=== PATIENT | male | born 1980 | race Caucasian/White ===

== ENCOUNTER 2017-03-06 03:17 | Emergency (ER) | payer BC ==
[2017-03-06 04:07] LABS: Urine Bilirubin Negative (NEGATIVE); Urine Blood 250 /ul (NEGATIVE); Urine Ketone Negative (NEGATIVE); Urine Nitrite Negative (NEGATIVE); Urine Protein 15 mg/dL (NEGATIVE); Urine Specific Gravity >=1.030 SP.GR. (1.005-1.030); Urine Urobilinogen Normal (NORMAL)
--- NOTE | 2017-03-06 04:20 | ERNOTE ---
Back Pain ER HPI Date of Service: 03/06/17 Time Seen by Provider: 03/06/17 04:06 Source: patient Exam Limitations: no limitations Immunizations: IMMUNIZATION HX Immunizations Up to Date Yes History of Influenza Vaccine No Hx Pneumococcal Vaccination No Allergies/Adverse Reactions: Allergies No Known Allergies Allergy (Verified 03/06/17 03:50) Home Medications: HOME MEDICATIONS Naproxen [Naprosyn] 500 mg PO BID PRN #30 tablet 03/06/17 [Last Taken Unknown] Ondansetron HCl [Zofran] 4 mg PO TID PRN #15 tablet 03/06/17 [Last Taken Unknown ] Tamsulosin HCl [Flomax] 0.4 mg PO DAILY@1800 PRN #15 cap 03/06/17 [Last Taken Unknown] Narrative: 36 year old that had a sudden onset of right flank pain that was severe and sharp. The pain has actually decreased and does not require any pain medications. There has been pain in the right flank intermittently for three days. No complaints of fever, chill, nausea, vomiting, dysuria, or urinary frequency. As a teenager he did have a kidney stone, but none since then. No medications were taken prior to coming to the ED. Date (Duration): 03/06/17 Timing: Reports: resolved prior to arrival Quality/Severity: Reports: severe Location of pain: Reports: lower back, other - questionable radiation to the right Lower quadrant Activities at Onset: Reports: none Possible Precipitating Factor: Reports: none Modifying Factors - (Improves): Reports: nothing Modifying Factors - (Worsens): Reports: nothing Associated Symptoms: Denies: fever/chills, nausea/vomiting Review of Systems - Review of Systems Constitutional: Present: no symptoms reported EYE: Present: no symptoms reported ENT: Present: no symptoms reported Respiratory: Present: no symptoms reported Cardiology: Present: no symptoms reported Gastrointestinal/Abdominal: Present: See HPI Genitourinary: Present: See HPI Musculoskeletal: Present: no symptoms reported Skin: Present: no symptoms reported Neurological: Present: no symptoms reported Endocrine: Present: no symptoms reported Hematologic/Lymphatic: Present: no symptoms reported Psych: Present: no symptoms reported - Patient's Past Medical History Patient History - Medical: No pertinent hx Patient History - Cardiac/Respiratory: No pertinent hx Patient History - Cancer: No Hx of Cancer Patient History - Surgical Procedures: Other Patient History - Other: None - Family History Father Family History - Medical: Kidney stone - Social History Living Situations: home Abuse History: No History of abuse Psych History: No pertinent hx Smoking Status: Current every day smoker Have you smoked in the past 12 months: Yes Do you dip or chew tobacco: No Alcohol Use: occasionally Drug Use: none - Immunizations Immunizations Up to Date: Yes Hx Pneumococcal Vaccination: No History of Influenza Vaccine: No Physical Exam - Physical Exam General Appearance: Present: no apparent distress Head Exam: Present: normal inspection Eye Exam: Normal inspection: bilateral Ears, Nose, Throat: Present: normal ENT inspection Neck: Present: normal inspection Respiratory: Present: no respiratory distress Cardiovascular/Chest: Present: regular rate, rhythm Gastrointestinal/Abdominal: Present: nondistended, soft, no organomegaly, other - Minimal tenderness on deep palpation at the bladder. Back Exam: Present: normal inspection, no CVA tenderness Extremity Exam: Present: normal inspection Neurological Exam: Present: alert, oriented, normal mood/affect Skin Exam: Present: normal color, warm/dry ED Progress - Results and Orders Patient's Lab Results:: I have reviewed the patient's lab results. - Vital Signs Patient's Vital Signs:: I have reviewed the patient's vital signs. Vital Signs: Vital Signs 03/06/17 03:51 Temperature 36.8 C Pulse Rate 77 Respiratory 12 Rate Blood Pressure 144/94 O2 Sat by Pulse 97 Oximetry - CT/Ultrasound CT/Ultrasound Narrative: CT demonstrated a 4 mm right proximal ureteral stone; right hydroureteronephrosis - Progress/Reassessment Chief Complaint: Back Pain Progress:: Unchanged Progress Note-Subjective: 03/06/17 05:51 Hemodynamically stable. Comfortable. Departure Clinical Impression: Renal stone - Departure Disposition: Home self-care Condition: Good Instructions: Renal Colic, [id number] Print Language: Persian Additional Instructions: Follow up with Urology next week. If the pain is not controlled by the medications return to the ED. Referrals: Nabil Quiñones MD [Associate] - Prescriptions: Naproxen [Naprosyn] 500 mg PO BID PRN #30 tablet PRN Reason: Pain Ondansetron HCl [Zofran] 4 mg PO TID PRN #15 tablet PRN Reason: Nausea Tamsulosin HCl [Flomax] 0.4 mg PO DAILY@1800 PRN #15 cap PRN Reason: Pain
[2017-03-06 04:21] LABS: Urine Appearance Slightly Cloudy; Urine Bacteria 1+; Urine Color Yellow; Urine Mucus Few - 1+; Urine WBC None Seen /hpf (0-5)
[2017-03-06 04:40] LABS: Hematocrit 40.8 % (42.0-52.0); Hemoglobin 14.3 gm/dL (13.5-18.0); Mean Cell Volume 93.4 fl (78-100); Mean Corpuscular Hemoglobin 32.7 pg (27-31); Mean Platelet Volume 9.1 fl (6.0-9.5); Neutrophil % 67.4 % (42-75.0); Platelet Count 269 K/mm3 (150-450); Red Blood Count 4.37 M/mm3 (4.7-6.0); Red Cell Distribution Width 11.9 % (11.5-14.0); White Blood Count 14.9 K/mm3 (4.0-10.5)
[2017-03-06 05:02] LABS: Anion Gap 13.7 mmol/L (6.8-13.8); Blood Urea Nitrogen 15 mg/dL (6-23); Calcium * 8.7 mg/dL (7.9-10.9); Carbon Dioxide 28.6 mmol/L (24-32.6); Chloride 104 mmol/L (97-106); Glucose * 110 mg/dL (70-110); Potassium 4.3 mmol/L (3.4-4.6); Sodium 142 mmol/L (132-142)
[2017-03-06 06:09] VITALS: BP 148/98
== END 2017-03-06 06:07 | disposition home or self-care (01) ==
LOC: ER 03:17
DX: N20.0 Calculus of kidney (principal); Z87.442 Personal history of urinary calculi; F17.200 Nicotine dependence, unspecified, uncomplicated

== ENCOUNTER 2017-03-12 11:06 | Day surgery (SDC) | payer BC ==
[~2017-03-12 11:06] MED LIST: ACETAMINOPHEN WITH CODEINE 1 EACH TABLET PO PRN; ONDANSETRON HCL/PF 2 MG/ML VIAL IV PRN; OXYBUTYNIN CHLORIDE 5 MG TABLET PO PRN; oxyCODONE HCL/ACETAMINOPHEN 1 TAB TABLET PO PRN
[2017-03-12] MEDS ORDERED: RINGER'S SOLUTION,LACTATED 1,000 ML IV PRN (11:29)
[2017-03-12] MEDS ORDERED: CIPROFLOXACIN IN 5 % DEXTROSE 400 MG/200 ML BAG IV PRN (11:30)
[2017-03-12] MEDS ORDERED: RINGER'S SOLUTION,LACTATED 1,000 ML IV ONE (15:00)
[2017-03-12 16:07] VITALS: BP 140/88
== END 2017-03-12 11:07 | disposition home or self-care (01) ==
LOC: AMB 11:06
PROVIDERS: ATTEND Urology
PROC: 0T768DZ Dilation of Right Ureter with Intraluminal Device, Via Natural or Artificial Opening Endoscopic (ICD-10-PCS; 2017-03-12)
PROC: 0TF38ZZ Fragmentation in Right Kidney Pelvis, Via Natural or Artificial Opening Endoscopic (ICD-10-PCS; principal; 2017-03-12 13:20)
DX: N20.0 Calculus of kidney (principal); N20.1 Calculus of ureter; E66.9 Obesity, unspecified; Z68.30 Body mass index [BMI] 30.0-30.9, adult

== ENCOUNTER 2018-11-10 20:38 | Inpatient (IN) ==
[2018-11-10] MEDS ORDERED: KETOROLAC TROMETHAMINE 30 MG/ML VIAL IV ONE (20:57)
[2018-11-10] MEDS ORDERED: NORMAL SALINE 1,000 ML IV ONE ×2 (20:57→22:32)
[2018-11-10] MEDS ORDERED: ONDANSETRON HCL/PF 2 MG/ML VIAL IV ONE ×2 (20:57→21:58)
--- NOTE | 2018-11-10 21:01 | ERNOTE ---
Abdominal HPI - General Chief Complaint: Abdominal Pain Time Seen by Provider: 11/10/18 20:52 Source: patient Exam Limitations: no limitations - Immun/Allergies/Home Medications Immunizatons: IMMUNIZATION HX Immunizations Up to Date Yes History of Influenza Vaccine Yes Hx Pneumococcal Vaccination No Allergies/Adverse Reactions: Allergies No Known Allergies Allergy (Verified 11/10/18 20:46) Home Medications: HOME MEDICATIONS NK 11/10/18 [Last Taken Unknown] - History of Present Illness Narrative: Patient states around 1700 today began having central abdominal pain and nausea. It has worsened since that time. He has vomited multiple times. He denies other symptomatology. Timing: getting worse Quality: moderate, severe, aching Activities at Onset: none Associated Symptoms: Present: denies symptoms Prior Abdominal Problems: Present: other - kidney stones- only the vomiting is similar to that Review of Systems - Review of Systems Constitutional: Absent: recent illness, fever, chills EYE: Absent: vision changes ENT: Absent: nose congestion, nasal drainage Respiratory: Absent: shortness of breath, cough Cardiology: Absent: chest pain Gastrointestinal/Abdominal: Present: See HPI, nausea. Absent: vomiting, diarrhea, constipation Genitourinary: Absent: frequency, pain, dysuria Musculoskeletal: Absent: back pain Skin: Absent: rash Endocrine: Absent: excessive sweating Medical History (Updated 11/11/18 @ 01:30 by Sven Saini DO) Kidney stone Surgical History: Surgical History (Updated 11/11/18 @ 02:14 by Sruthi Mulligan RN) stents placed for kidney stones Family History: Family History (Updated 11/11/18 @ 02:14 by Sruthi Mulligan RN) Father Renal failure Social History: Preferred Language Serbian Do you have any temple or No cultural preference? Smoking Status Never smoker Have you smoked in the past 12 No months Do you dip or chew tobacco No Abuse History No History of abuse Psych History No pertinent hx Alcohol Use occasionally Drug Use none No Social History Section defined Physical Exam - Physical Exam General Appearance: Present: wd/wn, alert, moderate distress Head Exam: Present: normal inspection, no evidence of injury Neck: Present: normal inspection, nontender, supple Respiratory: Present: no respiratory distress, no accessory muscle use, chest nontender, lungs clear Cardiovascular/Chest: Present: regular rate, rhythm, no murmur Gastrointestinal/Abdominal: Present: tenderness - Epigastric and right upper quadrant, abnormal bowel sounds - hypoactive. Absent: distended, guarding, rebound Back Exam: Present: normal inspection, normal range of motion Extremity Exam: Present: normal inspection, normal range of motion, no edema Neurological Exam: Present: alert, oriented, no motor/sensory deficits Skin Exam: Present: normal color, warm/dry Lymphatic Exam: Present: no adenopathy Progress - Results and Orders Patient's Lab Results:: I have reviewed the patient's lab results. Results and Orders: Laboratory Tests 11/10/18 11/10/18 11/10/18 21:00 21:00 21:00 WBC 27.4 H Hgb 15.6 Hct 45.9 Plt Count 383 Neutrophils % (Manual) 82 H Sodium 139 Potassium 3.7 Carbon Dioxide 25.7 Anion Gap 17.0 H BUN 13 Creatinine 1.00 Random Glucose 187 H Lactic Acid, Venous 2.9 H* Calcium 9.6 Total Bilirubin 0.4 AST 15 ALT 28 Alkaline Phosphatase 103 Amylase 2960 H Lipase 20434 H Urine Color Urine Appearance Urine pH Ur Specific [place] Urine Protein Urine Glucose (UA) Urine Ketones Urine Blood Urine Nitrate Prot Sulfosalicylic Acd Ur Leukocyte Esterase Urine Bacteria Urine Culture Comments 11/10/18 11/11/18 21:18 00:54 WBC Hgb Hct Plt Count Neutrophils % (Manual) Sodium Potassium Carbon Dioxide Anion Gap BUN Creatinine Random Glucose Lactic Acid, Venous 3.0 H* Calcium Total Bilirubin AST ALT Alkaline Phosphatase Amylase Lipase Urine Color Dark yellow Urine Appearance Slightly cloudy Urine pH 6.0 Ur Specific [place] >=1.030 Urine Protein 100 H Urine Glucose (UA) Negative Urine Ketones 15 Urine Blood Negative Urine Nitrate Negative Prot Sulfosalicylic Acd 3+ H Ur Leukocyte Esterase Negative Urine Bacteria None seen Urine Culture Comments No culture indicated - Vital Signs Patient's Vital Signs:: I have reviewed the patient's vital signs. Vital Signs: Vital Signs 11/10/18 20:48 Temperature 35.4 C L Pulse Rate 51 L Respiratory Rate 18 Blood Pressure 152/107 H O2 Sat by Pulse Oximetry 100 - CT/Ultrasound CT/Ultrasound Narrative: CT abdomen and pelvis with contrast: Severe acute pancreatitis - Progress/Reassessment Chief Complaint: Abdominal Pain Progress:: Improved Progress Note-Subjective: 11/10/18 22:00 Discussed lab results and my suggestion for a CT. Patient agrees. Patient still having some pain morphine and additional Zofran added. 11/11/18 01:[address] Flowers he agrees with admission for acute pancreatitis Departure Clinical Impression: Acute pancreatitis Qualifiers: Pancreatitis type: unspecified pancreatitis type Acute pancreatitis complication: no infection or necrosis Qualified Code(s): K85.90 - Acute pancreatitis without necrosis or infection, unspecified - Departure Disposition: Still a patient Condition: Fair
[2018-11-10 21:08] LABS: Hematocrit 45.9 % (42.0-52.0); Hemoglobin 15.6 gm/dL (13.5-18.0); Mean Cell Volume 95.2 fl (78-100); Mean Corpuscular Hemoglobin 32.4 pg (27-31); Mean Platelet Volume 9.1 fl (8-11.3); Platelet Count 383 K/mm3 (150-450); Red Blood Count 4.82 M/mm3 (4.7-6.0); Red Cell Distribution Width 12.4 % (11.5-14.0); White Blood Count 27.4 K/mm3 (4.0-10.5)
[2018-11-10 21:10] LABS: Total Cells Counted 100
[2018-11-10 21:19] LABS: Band 3 % (0-2.0); Lymphocyte 14 % (20-51); Monocyte 1 % (0-9); Neutrophil 82 % (42-75); Neutrophil # 22.5 K/mm3 (1.3-6.0); Platelet Estimate Normal (NORMAL); RBC Morphology Normal (NORMAL)
[2018-11-10 21:23] LABS: Urine Bilirubin Negative (NEGATIVE); Urine Blood Negative /ul (NEGATIVE); Urine Ketone 15 mg/dL (NEGATIVE); Urine Nitrite Negative (NEGATIVE); Urine Protein 100 mg/dL (NEGATIVE); Urine Specific Gravity >=1.030 SP.GR. (1.005-1.030); Urine Urobilinogen Normal (NORMAL)
[2018-11-10 21:26] LABS: Albumin * 4.9 gm/dl (3.4-5.0); Bilirubin, Total 0.4 mg/dL (0.0-1.1); Ca. Corrected For Albumin 8.6 mg/dL (8.4-10.2); Calcium * 9.6 mg/dL (7.9-10.9); Carbon Dioxide 25.7 mmol/L (24-32.6); Potassium 3.7 mmol/L (3.4-4.6); Total Protein 8.1 gm/dL (6.2-8.2)
[2018-11-10 21:33] LABS: Urine Appearance Slightly Cloudy (CLEAR); Urine Bacteria None Seen; Urine Color Dark Yellow; Urine RBC None Seen /hpf (0-5); Urine WBC 0-5 /hpf (0-5)
[2018-11-10] MEDS ORDERED: MORPHINE SULFATE 2 MG/ML DISP.SYRIN IV ONE (21:58)
[2018-11-10] MEDS ORDERED: DIATRIZOATE MEGLUMINE, SODIUM 30 ML BTL PO ONE (22:05)
[2018-11-10] MEDS ORDERED: PROCHLORPERAZINE EDISYLATE 5 MG/ML VIAL IV ONE ×2 (22:30→23:24)
[2018-11-11] MEDS ORDERED: cefTRIAXone SODIUM 1,000 MG/100 ML BAG IV ONE (01:18)
[2018-11-11] MEDS ORDERED: NORMAL SALINE 1,000 ML IV ONE (01:30)
[2018-11-11] MEDS ORDERED: MORPHINE SULFATE 2 MG/ML DISP.SYRIN IV ONE (01:30)
[2018-11-11] MEDS: MORPHINE SULFATE 4 MG/ML SYRG IV PRN ×4 (02:39→06:10)
[2018-11-11 05:35] LABS: Hematocrit 41.9 % (42.0-52.0); Hemoglobin 14.2 gm/dL (13.5-18.0); Mean Cell Volume 94.6 fl (78-100); Mean Corpuscular Hemoglobin 32.1 pg (27-31); Mean Corpuscular Hgb Conc 33.9 g/dl (32-36); Mean Platelet Volume 9.3 fl (8-11.3); Platelet Count 289 K/mm3 (150-450); Red Blood Count 4.43 M/mm3 (4.7-6.0); Red Cell Distribution Width 12.4 % (11.5-14.0); White Blood Count 22.8 K/mm3 (4.0-10.5)
[2018-11-11 05:38] LABS: Total Cells Counted 100
[2018-11-11 05:44] LABS: Albumin * 4.1 gm/dl (3.4-5.0); Anion Gap 16.7 mmol/L (6.8-13.8); BUN/Creatinine Ratio 16.5 (9.0-21.6); Bilirubin, Total 0.4 mg/dL (0.0-1.1); Ca. Corrected For Albumin 8.1 mg/dL (8.4-10.2); Calcium * 8.5 mg/dL (7.9-10.9); Carbon Dioxide 24.2 mmol/L (24-32.6); Chol/HDL Risk Ratio 4.5 mg/dL (3.3-5.0); Potassium 3.9 mmol/L (3.4-4.6)
[2018-11-11 06:01] LABS: Lymphocyte 6 % (20-51); Monocyte 3 % (0-9); Neutrophil 91 % (42-75); Neutrophil # 20.7 K/mm3 (1.3-6.0); Platelet Estimate Normal (NORMAL); RBC Morphology Normal (NORMAL)
[2018-11-11] MEDS: MORPHINE SULFATE 2 MG/ML DISP.SYRIN IV PRN ×4 (07:35→11:25)
[2018-11-11] MEDS ORDERED: diphenhydrAMINE HCL 50 MG/ML VIAL IV PRN (11:47)
[2018-11-11] MEDS ORDERED: NALOXONE HCL 1 MG/1 ML SYRG IV PRN (11:47)
[2018-11-11] MEDS: MORPHINE SULFATE 50 MG CARTRIDGE IV PRN (12:45)
[2018-11-11] MEDS: ONDANSETRON HCL/PF 2 MG/ML VIAL IV PRN ×2 (13:00→21:34)
[2018-11-11] MEDS: NORMAL SALINE 1,000 ML IV PRN (21:24)
--- NOTE | 2018-11-11 22:59 | HP ---
Chief Complaint - Chief Complaint Date of Service: 11/11/18 Time of Service: 11:00 Chief Complaint: Abdominal pain and nausea/vomiting History of Present Illness: Aleksandar is a 38 yo male presenting to the [facility] ER with severe epigastric abdominal pain, nausea, and vomiting. Symptoms began this morning all of a sudden. He denies any change in his diet, medications, or activity. In the ER his amylase and lipase levels were extremely high. A ct scan of abdomen showed severe pancreatitis but no evidence of abscess or cyst. Gall bladder appears normal and no evidence of gall stones or biliary obstruction. Liver did have fatty appearance, but cholesterol is normal. He does admit to eating more fatty foods than he should. He drinks alcohol but not significantly and nothing recently. He was given IV morphine for pain control in the ER. This helps but does not last long. Medical History (Updated 11/11/18 @ 01:30 by Sven Saini DO) Kidney stone Surgical History: Surgical History (Updated 11/11/18 @ 02:14 by Sruthi Mulligan RN) stents placed for kidney stones Family History: Family History (Updated 11/11/18 @ 02:14 by Sruthi Mulligan RN) Father Renal failure Social History: Patient Lives/Resources With Spouse Utilized Preferred Language Fijian Do you have any yazidism or No cultural preference? Smoking Status Former smoker Have you smoked in the past 12 No months Do you dip or chew tobacco No Abuse History No History of abuse Psych History No pertinent hx Alcohol Use occasionally Drug Use none No Social History Section defined Review Of Systems (GEN) - Review of Systems Generalized/Overall Review: Present: Weakness, Chills, Fatigue. Absent: Fever EENTM: Present: No Symptoms Reported Respiratory: Absent: Cough, Shortness of Breath Cardiac: Absent: Chest Pain, Edema, Palpitations, Syncope Abdominal: Present: Nausea, Vomiting, Abdominal Pain. Absent: Constipation, Diarrhea, Bright blood from rectum Genitourinary: Present: No Symptoms Reported Musculoskeletal: Present: No Symptoms Reported Neurological: Present: No Symptoms Reported Skin: Present: No Symptoms Reported Endocrine: Present: No Symptoms Reported Immunizations: IMMUNIZATION HX Immunizations Up to Date Yes History of Influenza Vaccine Yes Hx Pneumococcal Vaccination No Allergies/Adverse Reactions: Allergies Allergy/AdvReac Type Severity Reaction Status Date / Time No Known Allergies Allergy Verified 11/10/18 20:46 Home Medications: HOME MEDICATIONS NK 11/10/18 [Last Taken Unknown] Exam - Exam Vital Signs: Vital Signs - Last Taken Temp 37.0 C 11/11/18 18:03 Pulse 88 11/11/18 18:03 Resp 16 11/11/18 18:03 BP 130/79 11/11/18 18:03 Pulse Ox 97 11/11/18 18:03 Constitutional: Present: Alert, Oriented x3, Cooperative ENT Exam: Present: hearing grossly normal Eye Exam: bilateral eye: normal inspection Respiratory: Present: lungs clear, normal breath sounds Cardiovascular/Chest: Present: regular rate, rhythm, no murmur Peripheral Pulses: radial (R): 2+, radial (L): 2+ Abdomen: Present: Normal bowel sounds, soft, nondistended, no hepatospenomegaly, tender - Epigastric Skin Exam: Present: normal color, warm/dry, no cyanosis Lymphatic: Present: no adenopathy Appearance: Present: appropriate appearance, appropriate insight Eye contact: Present: cooperative, good eye contact, normal speech Diagnostic Studies: Abnormal Lab Results 11/11/18 11/11/18 11/11/18 Range/Units 00:54 05:03 05:03 WBC 22.8 H (4.0-10.5) K/mm3 RBC 4.43 L (4.7-6.0) M/mm3 Hct 41.9 L (42.0-52.0) % MCH 32.1 H (27-31) pg Neutrophils % (Manual) 91 H (42-75) % Lymphocytes % (Manual) 6 L (20-51) % Neutrophils # (Manual) 20.7 H (1.3-6.0) K/mm3 Lymphocytes # (Manual) 1.4 L (1.5-3.5) k/mm3 Anion Gap 16.7 H (6.8-13.8) mmol/L Random Glucose 150 H (70-110) mg/dL Lactic Acid, Venous 3.0 H* (0.4-2.0) mmol/L Calcium Adj for Albumin 8.1 L (8.4-10.2) mg/dL HDL Cholesterol 36 L (40-60) mg/dL Amylase 1459 H (25-115) U/L Lipase 8383 H (73-393) U/L Microbiology 11/10/18 22:00 Blood Culture - Preliminary Blood NO GROWTH 24 HOURS 11/10/18 21:00 Blood Culture - Preliminary Blood NO GROWTH 24 HOURS Laboratory Results WBC 22.8 K/mm3 (4.0-10.5) H 11/11/18 05:03 RBC 4.43 M/mm3 (4.7-6.0) L 11/11/18 05:03 Hgb 14.2 gm/dL (13.5-18.0) 11/11/18 05:03 Hct 41.9 % (42.0-52.0) L 11/11/18 05:03 MCV 94.6 fl (78-100) 11/11/18 05:03 MCH 32.1 pg (27-31) H 11/11/18 05:03 MCHC 33.9 g/dl (32-36) 11/11/18 05:03 RDW 12.4 % (11.5-14.0) 11/11/18 05:03 Plt Count 289 K/mm3 (150-450) 11/11/18 05:03 MPV 9.3 fl (8-11.3) 11/11/18 05:03 91 % (42-75) H 11/11/18 05:03 Band Neuts % (Manual) 3 % (0-2.0) H 11/10/18 21:00 6 % (20-51) L 11/11/18 05:03 3 % (0-9) 11/11/18 05:03 20.7 K/mm3 (1.3-6.0) H 11/11/18 05:03 1.4 k/mm3 (1.5-3.5) L 11/11/18 05:03 0.7 k/mm3 (0.0-1.0) 11/11/18 05:03 Normal (NORMAL) 11/11/18 05:03 RBC Morphology Normal (NORMAL) 11/11/18 05:03 Sodium 139 mmol/L (132-142) 11/11/18 05:03 140 mmol/L (130-142) 11/11/18 05:03 Potassium 3.9 mmol/L (3.4-4.6) 11/11/18 05:03 Chloride 102 mmol/L (97-106) 11/11/18 05:03 Carbon Dioxide 24.2 mmol/L (24-32.6) 11/11/18 05:03 16.7 mmol/L (6.8-13.8) H 11/11/18 05:03 BUN 14 mg/dL (6-23) 11/11/18 05:03 0.85 mg/dL (0.4-1.4) 11/11/18 05:03 Est GFR (Non-Af Amer) 107 mL/min (60-130) D 11/11/18 05:03 16.5 (9.0-21.6) 11/11/18 05:03 150 mg/dL (70-110) H 11/11/18 05:03 3.0 mmol/L (0.4-2.0) H* 11/11/18 00:54 Calcium 8.5 mg/dL (7.9-10.9) 11/11/18 05:03 Calcium Adj for Albumin 8.1 mg/dL (8.4-10.2) L 11/11/18 05:03 0.4 mg/dL (0.0-1.1) 11/11/18 05:03 AST 15 U/L (0-48) 11/11/18 05:03 ALT 23 U/L (19-67) 11/11/18 05:03 90 U/L (50-170) 11/11/18 05:03 7.0 gm/dL (6.2-8.2) 11/11/18 05:03 4.1 gm/dl (3.4-5.0) 11/11/18 05:03 Triglycerides 72 mg/dL (30-200) 11/11/18 05:03 Cholesterol 165 mg/dL (0-200) 11/11/18 05:03 115 mg/dL (70-130) 11/11/18 05:03 14 mg/dL (5-40) 11/11/18 05:03 36 mg/dL (40-60) L 11/11/18 05:03 4.5 mg/dL (3.3-5.0) 11/11/18 05:03 Amylase 1459 U/L (25-115) H 11/11/18 05:03 8383 U/L (73-393) H 11/11/18 05:03 Dark yellow 11/10/18 21:18 Slightly cloudy (CLEAR) 11/10/18 21:18 6.0 pH (5.0-7.0) 11/10/18 21:18 Ur Specific [place] >=1.030 SP.GR. (1.005-1.030) 11/10/18 21:18 100 mg/dL (NEGATIVE) H 11/10/18 21:18 Negative mg/dL (NEGATIVE) 11/10/18 21:18 15 mg/dL (NEGATIVE) 11/10/18 21:18 Negative /ul (NEGATIVE) 11/10/18 21:18 Negative (NEGATIVE) 11/10/18 21:18 Negative mg/dl (NEGATIVE) 11/10/18 21:18 Prot Sulfosalicylic Acd 3+ mg/dL (0) H 11/10/18 21:18 Normal EU/dl (NORMAL) 11/10/18 21:18 Ur Leukocyte Esterase Negative /ul (NEGATIVE) 11/10/18 21:18 None seen /hpf (0-5) 11/10/18 21:18 0-5 /hpf (0-5) 11/10/18 21:18 Ur Epithelial Cells 0-5 /hpf (0-5) 11/10/18 21:18 None seen (NONE) 11/10/18 21:18 No culture indicated 11/10/18 21:18 Assessment/Plan - Assessment/Plan (1) Acute pancreatitis Assessment: Acute pancreatitis with a lipase of 19,000. Uncertain etiology, although most likely fatty diet. There is severe pancreatitis on CT but no pseudocyst or abscess. Gall bladder appears normal and he denies alcohol. 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 Will monitor enzymes. Once pain is improved and off COMBER OPERATOR will advance diet and avoid fatty foods. Expect >2 midnights to treat with fluids and rest pancreas before we will be able to advance diet. Problem: Acute Qualifiers: Pancreatitis type: unspecified pancreatitis type Acute pancreatitis complication: no infection or necrosis Qualified Code(s): K85.90 - Acute pancreatitis without necrosis or infection, unspecified
[2018-11-12] MEDS: MORPHINE SULFATE 50 MG CARTRIDGE IV PRN ×4 (02:16→19:38)
[2018-11-12] MEDS: NORMAL SALINE 1,000 ML IV PRN ×3 (04:47→20:18)
[2018-11-12 06:47] LABS: Hematocrit 41.7 % (42.0-52.0); Hemoglobin 14.1 gm/dL (13.5-18.0); Mean Cell Volume 95.4 fl (78-100); Mean Corpuscular Hemoglobin 32.3 pg (27-31); Mean Corpuscular Hgb Conc 33.8 g/dl (32-36); Mean Platelet Volume 9.1 fl (8-11.3); Neutrophil # 23.2 K/mm3 (1.3-6.0); Neutrophil % 89.1 % (42-75.0); Platelet Count 237 K/mm3 (150-450); Red Blood Count 4.37 M/mm3 (4.7-6.0); Red Cell Distribution Width 12.7 % (11.5-14.0); White Blood Count 26.1 K/mm3 (4.0-10.5)
[2018-11-12] MEDS: ONDANSETRON HCL/PF 2 MG/ML VIAL IV PRN (06:50)
[2018-11-12 07:00] LABS: Total Cells Counted 100
--- NOTE | 2018-11-12 07:04 | PN ---
Subjective - Date and Time Seen Date: 11/12/18 Time: 07:04 Subjective Narrative: Reports feeling better. He still has abdominal pain located at epigastric. The morphine WEED ERADICATOR helps, he thinks it could be a little better controlled. Woke up with urgency to go to bathroom and some nausea. That his since improved. Objective - Vitals Vitals: Last Vital Signs Temp 36.8 C 11/12/18 06:00 Pulse 90 11/12/18 06:00 Resp 18 11/12/18 06:00 BP 119/65 11/12/18 06:00 Pulse Ox 97 11/12/18 06:00 - Abnormal Lab Findings Abnormal Lab Findings: Abnormal Lab Results 11/12/18 Range/Units 06:46 WBC 26.1 H (4.0-10.5) K/mm3 RBC 4.37 L (4.7-6.0) M/mm3 Hct 41.7 L (42.0-52.0) % MCH 32.3 H (27-31) pg Immature Gran % (Auto) 0.50 H (0.001-0.429) % Immature Gran # (Auto) 0.14 H (0.000-0.0310) K/mm3 Neutrophils % 89.1 H (42-75.0) % Lymphocytes % 4.5 L (20-51) % Neutrophils # 23.2 H (1.3-6.0) K/mm3 Lymphocytes # 1.18 L (1.5-3.5) k/mm3 Monocytes # 1.5 H (0.0-1.0) k/mm3 - Exam Constitutional: Present: Alert, Oriented x3, Cooperative ENT Exam: Present: hearing grossly normal Respiratory: Present: lungs clear, normal breath sounds Cardiovascular/Chest: Present: regular rate, rhythm, no murmur Abdomen: Present: Normal bowel sounds, nondistended, tender - epigastric Skin Exam: Present: normal color, warm/dry, no cyanosis Appearance: Present: appropriate appearance, appropriate insight Assessment/Plan Plan Narrative: Pancreatic enzymes improving significantly. Pain improved, but still present. Continue fluids, continue morphine WEED ERADICATOR with slight increase from 1mg every 10 minutes to 1.5mg every 10 minutes on WEED ERADICATOR. Once pain is improved enough that he c an be taken off of the WEED ERADICATOR will plan to discontinue the WEED ERADICATOR and begin advancing diet. If symptoms worsen consider repeat CT to evaluate for development of abscess vs cyst. - Problems/Diagnosis (1) Acute pancreatitis Problem: Acute Qualifiers: Pancreatitis type: unspecified pancreatitis type Acute pancreatitis complication: no infection or necrosis Qualified Code(s): K85.90 - Acute pancreatitis without necrosis or infection, unspecified
[2018-11-12 07:10] LABS: Albumin * 3.3 gm/dl (3.4-5.0); Anion Gap 12.9 mmol/L (6.8-13.8); BUN/Creatinine Ratio 14.5 (9.0-21.6); Bilirubin, Total 0.6 mg/dL (0.0-1.1); Ca. Corrected For Albumin 8.4 mg/dL (8.4-10.2); Calcium * 8.2 mg/dL (7.9-10.9); Carbon Dioxide 28.1 mmol/L (24-32.6); Total Protein 6.3 gm/dL (6.2-8.2)
[2018-11-12 07:23] LABS: Band 3 % (0-2.0); Lymphocyte 8 % (20-51); Monocyte 11 % (0-9); Neutrophil 78 % (42-75); Neutrophil # 20.4 K/mm3 (1.3-6.0); Platelet Estimate Normal (NORMAL)
[2018-11-12 07:24] LABS: RBC Morphology Normal (NORMAL)
[2018-11-13] MEDS: NORMAL SALINE 1,000 ML IV PRN (04:15)
[2018-11-13] MEDS: MORPHINE SULFATE 50 MG CARTRIDGE IV PRN (07:36)
[2018-11-13] MEDS ORDERED: ACETAMINOPHEN 500 MG TABLET PO PRN (08:06)
--- NOTE | 2018-11-13 14:55 | PN ---
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 He is tolerating a liquid diet. Objective - Review of Systems Generalized/Overall Review: Denies: Fever Respiratory: Denies: Shortness of Breath Cardiac: Denies: Chest Pain Abdominal: Denies: Abdominal Pain Misc: All systems neg except as marked - Vitals Vitals: Last Vital Signs Temp 37.0 C 11/13/18 11:13 Pulse 76 11/13/18 11:13 Resp 16 11/13/18 11:13 BP 134/76 11/13/18 11:13 Pulse Ox 98 11/13/18 11:13 - Exam Constitutional: Present: Alert, Cooperative, Well developed, Well nourished, No distress ENT Exam: Present: hearing grossly normal Neck: Present: supple, normal inspection, trachea midline. Absent: lymphadenopathy (R), lymphadenopathy (L) Respiratory: Present: lungs clear, normal breath sounds, no respiratory distress, no accessory muscle use, No wheezing. Absent: crackles, rhonchi Cardiovascular/Chest: Present: normal peripheral pulses, regular rate, rhythm, no edema, no murmur Abdomen: Present: Normal bowel sounds, soft, nontender Extremity: Present: normal inspection, no pedal edema Skin Exam: Present: normal color, warm/dry Neurologic: Present: alert, normal mood/affect Appearance: Present: appropriate appearance Eye contact: Present: cooperative Thoughts: Present: normal thought pattern, normal mood /affect Assessment/Plan Plan Narrative: 38-year-old male with past medical history of kidney stone presents with pancreatitis. CT abdomen and pelvis positive for acute moderate to severe pancreatitis without evidence of complication. Patient was admitted for management of pancreatitis, placed n.p.o. Pain was improved and he is no longer requiring the FIBER GLASS WORKER pump. We tried to advance him to a low-fat diet but he reported abdominal discomfort with the diet. We will transition him back to a clear liquid diet. Order placed for Dilaudid 2 mg every 4 hours orally as needed. - Problems/Diagnosis (1) Acute pancreatitis Problem: Acute Qualifiers: Pancreatitis type: unspecified pancreatitis type Acute pancreatitis complication: no infection or necrosis Qualified Code(s): K85.90 - Acute pancreatitis without necrosis or infection, unspecified
[2018-11-13 14:56] LABS: Hemoglobin 12.5 gm/dL (13.5-18.0); Mean Cell Volume 95.2 fl (78-100); Mean Corpuscular Hemoglobin 33.1 pg (27-31); Mean Corpuscular Hgb Conc 34.7 g/dl (32-36); Mean Platelet Volume 9.1 fl (8-11.3); Neutrophil % 86.6 % (42-75.0); Platelet Count 187 K/mm3 (150-450); Red Blood Count 3.78 M/mm3 (4.7-6.0); Red Cell Distribution Width 12.5 % (11.5-14.0); White Blood Count 19.6 K/mm3 (4.0-10.5)
[2018-11-13] MEDS: ONDANSETRON HCL/PF 2 MG/ML VIAL IV PRN (15:08)
[2018-11-13 15:09] LABS: Anion Gap 12.7 mmol/L (6.8-13.8); BUN/Creatinine Ratio 10.7 (9.0-21.6); Bilirubin, Total 0.8 mg/dL (0.0-1.1); Ca. Corrected For Albumin 8.9 mg/dL (8.4-10.2); Calcium * 8.4 mg/dL (7.9-10.9); Carbon Dioxide 27.9 mmol/L (24-32.6); Potassium 3.6 mmol/L (3.4-4.6); Total Protein 6.5 gm/dL (6.2-8.2)
[2018-11-13] MEDS: HYDROmorphone HCL 2 MG TABLET PO PRN ×2 (15:35→19:33)
[2018-11-13] MEDS ORDERED: BISACODYL 10 MG SUPP.RECT RC STA (21:57)
[2018-11-14] MEDS: HYDROmorphone HCL 2 MG TABLET PO PRN (02:26)
[2018-11-14] MEDS: ONDANSETRON HCL/PF 2 MG/ML VIAL IV PRN (02:26)
[2018-11-14 06:34] LABS: Hematocrit 36.5 % (42.0-52.0); Hemoglobin 12.5 gm/dL (13.5-18.0); Mean Cell Volume 94.3 fl (78-100); Mean Corpuscular Hemoglobin 32.3 pg (27-31); Mean Corpuscular Hgb Conc 34.2 g/dl (32-36); Mean Platelet Volume 9.9 fl (8-11.3); Neutrophil # 16.4 K/mm3 (1.3-6.0); Neutrophil % 84.2 % (42-75.0); Platelet Count 224 K/mm3 (150-450); Red Blood Count 3.87 M/mm3 (4.7-6.0); Red Cell Distribution Width 12.3 % (11.5-14.0); White Blood Count 19.5 K/mm3 (4.0-10.5)
[2018-11-14 06:44] LABS: Anion Gap 13.3 mmol/L (6.8-13.8); Bilirubin, Total 0.8 mg/dL (0.0-1.1); Ca. Corrected For Albumin 9.3 mg/dL (8.4-10.2); Calcium * 8.8 mg/dL (7.9-10.9); Carbon Dioxide 27.1 mmol/L (24-32.6); Potassium 3.4 mmol/L (3.4-4.6); Total Protein 6.8 gm/dL (6.2-8.2)
[2018-11-14] MEDS ORDERED: KETOROLAC TROMETHAMINE 30 MG/ML VIAL IV PRN (09:31)
[2018-11-14] MEDS: ONDANSETRON HCL/PF 2 MG/ML VIAL IV SCH ×3 (10:21→17:55)
--- NOTE | 2018-11-14 19:03 | DS ---
(1) Acute pancreatitis Problem: Acute Qualifiers: Pancreatitis type: unspecified pancreatitis type Acute pancreatitis complication: no infection or necrosis Qualified Code(s): K85.90 - Acute pancreatitis without necrosis or infection, unspecified Description of Stay: Aleksandar is a 38 you male that was admitted for acute pancreatitis of unknown etiology. He denies significant alcohol use and there was no evidence of gallbladder dysfunction or stones on CT. He does admit to eating a diet that is likely high in fats, but his lipid panel was normal. 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 As pain improved PHARMACEUTICAL ENGINEER was discontinued and diet was advanced. He tolerated this well and was discharged to home. He was educated to avoid fatty foods and limit alcohol intake. Procedures Performed: none Results and Findings: Pending Mircobiology Results 11/10/18 22:00 Blood Blood Culture - Preliminary NO GROWTH AFTER 48 HOURS 11/10/18 21:00 Blood Blood Culture - Preliminary NO GROWTH AFTER 48 HOURS Lab Pending Results 11/10/18 21:00: WBC 27.4 H, RBC 4.82, Hgb 15.6, Hct 45.9, MCV 95.2, MCH 32.4 H, MCHC 34.0, RDW 12.4, Plt Count 383, MPV 9.1, Neutrophils % (Manual) 82 H, Band Neuts % (Manual) 3 H, Lymphocytes % (Manual) 14 L, Monocytes % (Manual) 1, Neutrophils # (Manual) 22.5 H, Lymphocytes # (Manual) 3.8 H, Monocytes # (Manual) 0.3, Platelet Estimate Normal, RBC Morphology Normal 11/10/18 21:00: Sodium 139, Plasma Sodium 140, Potassium 3.7, Chloride 100, Carbon Dioxide 25.7, Anion Gap 17.0 H, BUN 13, Creatinine 1.00, Est GFR (Non-Af Amer) 89, BUN/Creatinine Ratio 13.0, Random Glucose 187 H, Calcium 9.6, Calcium Adj for Albumin 8.6, Total Bilirubin 0.4, AST 15, ALT 28, Alkaline Phosphatase 103, Total Protein 8.1, Albumin 4.9, Amylase 2960 H, Lipase 57672 H 11/10/18 21:00: Lactic Acid, Venous 2.9 H* 11/10/18 21:18: Urine Color Dark yellow, Urine Appearance Slightly cloudy, Urine pH 6.0, Ur Specific [place] >=1.030, Urine Protein 100 H, Urine Glucose (UA) Negative, Urine Ketones 15, Urine Blood Negative, Urine Nitrate Negative, Urine Bilirubin Negative, Prot Sulfosalicylic Acd 3+ H, Urine Urobilinogen Normal, Ur Leukocyte Esterase Negative, Urine RBC None seen, Urine WBC 0-5, Ur Epithelial Cells 0-5, Urine Bacteria None seen, Urine Culture Comments No culture indicated 11/11/18 00:54: Lactic Acid, Venous 3.0 H* 11/11/18 05:03: WBC 22.8 H, RBC 4.43 L, Hgb 14.2, Hct 41.9 L, MCV 94.6, MCH 32.1 H, MCHC 33.9, RDW 12.4, Plt Count 289, MPV 9.3, Neutrophils % (Manual) 91 H, Lym phocytes % (Manual) 6 L, Monocytes % (Manual) 3, Neutrophils # (Manual) 20.7 H, Lymphocytes # (Manual) 1.4 L, Monocytes # (Manual) 0.7, Platelet Estimate Normal, RBC Morphology Normal 11/11/18 05:03: Sodium 139, Plasma Sodium 140, Potassium 3.9, Chloride 102, Carbon Dioxide 24.2, Anion Gap 16.7 H, BUN 14, Creatinine 0.85, Est GFR (Non-Af Amer) 107 D, BUN/Creatinine Ratio 16.5, Random Glucose 150 H, Calcium 8.5, Calcium Adj for Albumin 8.1 L, Total Bilirubin 0.4, AST 15, ALT 23, Alkaline Phosphatase 90, Total Protein 7.0, Albumin 4.1, Triglycerides 72, Cholesterol 165, LDL Cholesterol 115, VLDL Cholesterol 14, HDL Cholesterol 36 L, Cholesterol/HDL Ratio 4.5, Amylase 1459 H, Lipase 8383 H 11/12/18 06:46: WBC 26.1 H, RBC 4.37 L, Hgb 14.1, Hct 41.7 L, MCV 95.4, MCH 32.3 H, MCHC 33.8, RDW 12.7, Plt Count 237, MPV 9.1, Immature Gran % (Auto) 0.50 H, Immature Gran # (Auto) 0.14 H, Neutrophils % 89.1 H, Neutrophils % (Manual) 78 H, Band Neuts % (Manual) 3 H, Lymphocytes % 4.5 L, Lymphocytes % (Manual) 8 L, Monocytes % 5.7, Monocytes % (Manual) 11 H, Eosinophils % 0.0, Basophils % 0.2, Nucleated RBC % 0.0, Neutrophils # 23.2 H, Neutrophils # (Manual) 20.4 H, Lymphocytes # 1.18 L, Lymphocytes # (Manual) 2.1, Monocytes # 1.5 H, Monocytes # (Manual) 2.9 H, Eosinophils # 0.0, Absolute Basophils 0.0, Platelet Estimate Normal, RBC Morphology Normal 11/12/18 06:46: Sodium 137, Plasma Sodium 137, Potassium 4.0, Chloride 100, Carbon Dioxide 28.1, Anion Gap 12.9, BUN 11, Creatinine 0.76, Est GFR (Non-Af Amer) 122, BUN/Creatinine Ratio 14.5, Random Glucose 118 H, Calcium 8.2, Calcium Adj for Albumin 8.4, Total Bilirubin 0.6, AST 13, ALT 20, Alkaline Phosphatase 73, Total Protein 6.3, Albumin 3.3 L, Amylase 911 H, Lipase 3750 H 11/13/18 14:49: Sodium 135, Plasma Sodium 135, Potassium 3.6, Chloride 98, Carbon Dioxide 27.9, Anion Gap 12.7, BUN 8, Creatinine 0.75, Est GFR (Non-Af Amer) 124, BUN/Creatinine Ratio 10.7, Random Glucose 110, Calcium 8.4, Calcium Adj for Albumin 8.9, Total Bilirubin 0.8, AST 15, ALT 17 L, Alkaline Phosphatase 76, Total Protein 6.5, Albumin 3.0 L, Amylase 242 H, Lipase 507 H 11/13/18 14:49: WBC 19.6 H D, RBC 3.78 L, Hgb 12.5 L, Hct 36.0 L, MCV 95.2, MCH 33.1 H, MCHC 34.7, RDW 12.5, Plt Count 187, MPV 9.1, Immature Gran % (Auto) 0.60 H, Immature Gran # (Auto) 0.12 H, Neutrophils % 86.6 H, Lymphocytes % 5.0 L, Monocytes % 7.6, Eosinophils % 0.0, Basophils % 0.2, Nucleated RBC % 0.0, Neutrophils # 17.0 H, Lymphocytes # 0.97 L, Monocytes # 1.5 H, Eosinophils # 0.0, Absolute Basophils 0.0 11/14/18 06:00: WBC 19.5 H, RBC 3.87 L, Hgb 12.5 L, Hct 36.5 L, MCV 94.3, MCH 32.3 H, MCHC 34.2, RDW 12.3, Plt Count 224, MPV 9.9, Immature Gran % (Auto) 0.70 H, Immature Gran # (Auto) 0.13 H, Neutrophils % 84.2 H, Lymphocytes % 6.8 L, Monocytes % 8.1, Eosinophils % 0.1, Basophils % 0.1, Nucleated RBC % 0.0, Neutrophils # 16.4 H, Lymphocytes # 1.43 L, Monocytes # 1.4 H, Eosinophils # 0.0, Absolute Basophils 0.0 11/14/18 06:00: Sodium 134, Plasma Sodium 134, Potassium 3.4, Chloride 97, Ca rbon Dioxide 27.1, Anion Gap 13.3, BUN 9, Creatinine 0.69, Est GFR (Non-Af Amer) 136 H, BUN/Creatinine Ratio 13.0, Random Glucose 109, Calcium 8.8, Calcium Adj for Albumin 9.3, Total Bilirubin 0.8, AST 16, ALT 18 L, Alkaline Phosphatase 80, Total Protein 6.8, Albumin 3.0 L, Amylase 119 H, Lipase 194 Discharge Location: Home Disposition: Home self-care Condition: Fair Discharge Activity: Activity as tolerated Discharge Diet: Low fat/chol Referrals: Orlin Flowers DO [Staff Physician] - One Week Problem Oriented Discharge Instructions to Patient/Family: Acute Pancreatitis, [id number]
[2018-11-14 19:38] VITALS: BP 154/87
== END 2018-11-14 19:25 | disposition home or self-care (01) | DRG 440 ==
LOC: ER 20:38 → MS 11-11 01:28
PROVIDERS: ADMIT Family Medicine; ATTEND Family Medicine
CPT/HCPCS: 36415; 74019; 74020; 74177; 80053; 80061; 81001; 82150; 83605; 83690; 85007; 85025; 87040; 96361; 96374; 96375; 96376; 99283; J2405; Q9967